=== PATIENT | male | born 1965 | race Caucasian/White ===

== ENCOUNTER 2017-02-06 22:49 | Emergency (ER) | payer MEDICARE, MEDICAID ==
[~2017-02-06] VITALS: Ht 187.9 cm; Wt 101.6 kg
[~2017-02-06 22:49] MED LIST: ABILIFY2 MG PO; BACTRIM DS 8001 TA1 PO; CATAFLAM50 MG PO; CATAPRES0.1 MG PO; CLARITIN10 MG PO; CLEOCIN HCL150 MG PO; CLINDAMYCIN HC300 MG PO; CLINDAMYCIN150 MG PO; DAYPRO600 M1 PO; DEPAKOTE ER500 MG PO; DEPAKOTE250 MG PO; HYDROCODONE BIT1 T11 PO; KEFLEX500 MG PO; KEPPRA1000 MG PO; LEVAQUIN750 MG PO; MEDROL DOSEPAK4 MG PO; MOTRIN800 MG PO; NASONEX0.05 MG/AC NS; NEOSPORIN TP; NEURONTIN300 MG PO; OMNICEF300 MG PO; OPANA ER10 MG PO; OPANA10 MG PO; PERCOCET 325 MG1 TA2 PO; VALIUM10 MG PO; VICODIN 5/500 505 MG PO; VICODIN 500 MG-1 TAB PO; VICODIN ES 7501 TAB PO; VITAMIN D5000 I2 PO; ZITHROMAX Z PA250 MG PO; ZITHROMAX250 MG PO; [UNRECOGNIZED DRUG - OTHER]; [UNRECOGNIZED DRUG - OTHER] TP
[2017-02-06 23:50] LABS: BILIRUBIN NEGATIVE (NEGATIVE); BLOOD NEGATIVE (NEGATIVE); CLARITY CLEAR (CLEAR); COLOR YELLOW (YELLOW); GLUCOSE NEGATIVE (NEGATIVE); KETONE 1+ (NEGATIVE); LEUKO ESTERASE NEGATIVE (NEGATIVE); NITRITE NEGATIVE (NEGATIVE); PH 5.5 (5.0-9.0); PROTEIN TRACE (NEGATIVE); SPECIFIC GRAVITY 1.025 (1.005-1.030); UROBILINOGEN 0.2 E.U./dl (0.2-1.0)
[2017-02-06 23:56] LABS: BACTERIA TRACE; EPITHELIAL CELLS 0-2; RBC 0-2 rbc/hpf (0-2); URINE REFLEX COMMENT NO (NO)
[2017-02-07 00:01] LABS: BASO # 0.1 10*3/uL (0.0-0.1); BASO % 0.4 % (0.0-1.0); EOS # 0.1 10*3/uL (0.0-0.4); EOS % 0.5 % (1.0-4.0); HEMATOCRIT 52.5 % (42.0-52.0); HEMOGLOBIN 17.9 g/dl (14.0-18.0); IG # 0.1 10*3/uL (0.0-0.1); LYMPH # 3.2 10*3/uL (1.3-4.4); MEAN CELL VOLUME 93.9 fl (80.0-94.0); MEAN CORPUSCULAR HGB CONC 34.1 g/dl (33.0-37.0); MEAN PLATELET VOLUME 10.6 fl (9.6-12.3); MONO # 0.9 10*3/uL (0.1-1.0); MONO % 7.5 % (3.0-9.0); NEUT # 8.1 10*3/uL (2.3-7.9); NEUT % 65.2 % (47.0-73.0); PLATELET COUNT AUTOMATED 231 10*3/uL (130-400); RED BLOOD COUNT 5.59 10*6/uL (4.50-5.90); RED CELL DISTRI WIDTH 11.9 % (0-14.5); WHITE BLOOD COUNT 12.4 10*3/uL (4.8-10.8)
[2017-02-07 00:03] LABS: URINE AMPHETAMINES < 1000 (1000ng/ml); URINE BARBITURATES < 200 (200ng/ml); URINE COCAINE < 300 (300ng/ml)
[2017-02-07 00:13] LABS: BUN 15 mg/dl (7-24); CARBON DIOXIDE 28 mmol/L (21-32); CHLORIDE 99 mmol/L (98-107); EST GLOM FILT AFRICAN AMERICAN > 60 ml/min; GLUCOSE 119 mg/dL (65-99); SODIUM 137 mmol/L (136-145)
== END 2017-02-07 01:36 | disposition home or self-care (01) ==
LOC: ED 22:49
PROVIDERS: Emergency Medicine Emergency Medical Services
DX: G40.209 Localization-related (focal) (partial) symptomatic epilepsy and epileptic syndromes with complex partial seizures, not intractable, without status epilepticus (principal); Z88.0 Allergy status to penicillin; Z88.6 Allergy status to analgesic agent; Z88.8 Allergy status to other drugs, medicaments and biological substances; Z91.041 Radiographic dye allergy status; Z79.899 Other long term (current) drug therapy

== ENCOUNTER 2018-12-23 06:37 | Emergency (ER) | payer MEDICARE, MEDICAID ==
[~2018-12-23] VITALS: Ht 187.9 cm; Wt 91.6 kg
[~2018-12-23 06:37] MED LIST changes: +ABILIFY20 MG PO; +BREO ELLIPTA 21 EACH INH; +DIAZEPAM10 M1 PO; +GLUCOPHAGE500 M1 PO; +ZITHROMAX1 GM PO
== END 2018-12-23 09:18 | disposition left against medical advice (07) ==
LOC: ED 06:37
DX: R60.0 Localized edema (principal); Z98.890 Other specified postprocedural states; Z79.899 Other long term (current) drug therapy; Z88.0 Allergy status to penicillin; Z88.6 Allergy status to analgesic agent; Z91.041 Radiographic dye allergy status; Z88.5 Allergy status to narcotic agent

== ENCOUNTER → 2019-04-25 | Outpatient (CLI) | payer MEDICARE, MEDICAID | END | disposition home or self-care (01) | LOC: RAD 12:26 | DX: M51.36 Other intervertebral disc degeneration, lumbar region (principal); M54.16 Radiculopathy, lumbar region ==

== ENCOUNTER 2019-05-11 14:17 | Emergency (ER) | payer MEDICARE, MEDICAID ==
[~2019-05-11] VITALS: Wt 93.0 kg
[2019-05-11] MEDS ORDERED: OXYCODONE HCL10 M1 PO (15:12)
== END 2019-05-11 15:54 | disposition home or self-care (01) ==
LOC: ED 14:17
DX: G89.29 Other chronic pain (principal); M54.5 Low back pain; R20.0 Anesthesia of skin; R20.2 Paresthesia of skin; E11.9 Type 2 diabetes mellitus without complications; F11.23 Opioid dependence with withdrawal; Z79.899 Other long term (current) drug therapy; Z88.0 Allergy status to penicillin; Z88.6 Allergy status to analgesic agent; Z91.041 Radiographic dye allergy status; Z88.8 Allergy status to other drugs, medicaments and biological substances

== ENCOUNTER → 2020-01-30 | Outpatient (CLI) | payer MEDICARE, MEDICAID ==
[~2020-01-30] MED LIST changes: +OXYCODONE HCL10 M1 PO
[2020-01-30 16:52] LABS: BASO # 0.1 10*3/uL (0.0-0.1); BASO % 0.4 % (0.0-1.0); EOS # 0.1 10*3/uL (0.0-0.4); EOS % 0.5 % (1.0-4.0); HEMATOCRIT 46.7 % (42.0-52.0); LYMPH # 3.4 10*3/uL (1.3-4.4); LYMPH % 27.4 % (27.0-41.0); MEAN CELL VOLUME 98.9 fl (80.0-94.0); MEAN CORPUSCULAR HGB CONC 32.3 g/dl (33.0-37.0); MEAN PLATELET VOLUME 10.4 fl (9.6-12.3); MONO # 0.9 10*3/uL (0.1-1.0); MONO % 7.6 % (3.0-9.0); NEUT # 7.8 10*3/uL (2.3-7.9); NEUT % 63.4 % (47.0-73.0); PLATELET COUNT AUTOMATED 233 10*3/uL (130-400); RED BLOOD COUNT 4.72 10*6/uL (4.50-5.90); WHITE BLOOD COUNT 12.2 10*3/uL (4.8-10.8)
[2020-01-30 17:29] LABS: ALBUMIN 3.6 gm/dl (3.1-4.5); ALKALINE PHOSPHATASE 44 U/L (45-117); BUN 14 mg/dl (7-24); CHLORIDE 105 mmol/L (98-107); CHOLESTEROL 191 mg/dL (<200); CREATININE 0.72 mg/dL (0.70-1.30); FREE T4 0.93 ng/dl (0.76-1.46); HDL CHOLESTEROL 31 mg/dl (40-60); LDL CHOLESTEROL 119 mg/dL (9-159); POTASSIUM 4.4 mmol/L (3.5-5.1); SGOT/AST 19 IU/L (3-35); SGPT/ALT 47 U/L (12-78); SODIUM 139 mmol/L (136-145); TOTAL PROTEIN 7.2 gm/dL (6.4-8.2); TRIGLYCERIDES 206 mg/dl (<150); URIC ACID 4.6 mg/dL (3.5-7.2); VLDL CHOLESTEROL 41 mg/dL (6-40)
[2020-01-30 17:43] LABS: VITAMIN D, 25-HYDROXY 42.2 ng/mL (30-100)
== END | disposition home or self-care (01) ==
LOC: LAB 16:34
PROVIDERS: Internal Medicine
DX: Z00.00 Encounter for general adult medical examination without abnormal findings (principal); R60.0 Localized edema; E55.9 Vitamin D deficiency, unspecified; I10 Essential (primary) hypertension; E11.9 Type 2 diabetes mellitus without complications; M10.072 Idiopathic gout, left ankle and foot

== ENCOUNTER → 2020-10-14 | Outpatient (CLI) | payer OTHER, MEDICAID | END | disposition home or self-care (01) | LOC: RAD 10:42 | PROVIDERS: ATTEND Nurse Practitioner Acute Care | DX: M54.16 Radiculopathy, lumbar region (principal); M54.5 Low back pain ==

== ENCOUNTER 2021-03-01 06:08 | Emergency (ER) | payer OTHER, MEDICAID ==
[~2021-03-01] VITALS: Ht 180.3 cm; Wt 90.7 kg
[2021-03-01 07:28] LABS: HEMATOCRIT 47.2 % (42.0-52.0); MEAN CELL VOLUME 93.7 fl (80.0-94.0); MEAN CORPUSCULAR HGB 30.6 pg (27.0-31.0); MEAN CORPUSCULAR HGB CONC 32.6 g/dl (33.0-37.0); MEAN PLATELET VOLUME 10.3 fl (9.6-12.3); PLATELET COUNT AUTOMATED 260 10*3/uL (130-400); RED BLOOD COUNT 5.04 10*6/uL (4.50-5.90); RED CELL DISTRI WIDTH 12.6 % (0-14.5); WHITE BLOOD COUNT 11.3 10*3/uL (4.8-10.8)
[2021-03-01 07:41] LABS: ALBUMIN 3.5 gm/dl (3.1-4.5); ALKALINE PHOSPHATASE 76 U/L (45-117); BUN 10 mg/dl (7-24); CHLORIDE 104 mmol/L (98-107); CREATININE 0.69 mg/dL (0.70-1.30); POTASSIUM 4.1 mmol/L (3.5-5.1); SGOT/AST 9 IU/L (3-35); SGPT/ALT 27 U/L (12-78); SODIUM 136 mmol/L (136-145); TOTAL PROTEIN 7.6 gm/dL (6.4-8.2)
[2021-03-01 07:55] LABS: TOTAL CELLS COUNTED 100 #CELLS
[2021-03-01 07:56] LABS: PLATELET SUFFICIENCY NORMAL (NORMAL)
== END 2021-03-01 08:05 | disposition left against medical advice (07) ==
LOC: ED 06:08
PROVIDERS: Emergency Medicine
DX: S81.801A Unspecified open wound, right lower leg, initial encounter (principal); F17.200 Nicotine dependence, unspecified, uncomplicated; Z88.0 Allergy status to penicillin; Z88.8 Allergy status to other drugs, medicaments and biological substances; Z91.041 Radiographic dye allergy status; Z88.6 Allergy status to analgesic agent; Z79.899 Other long term (current) drug therapy; Z79.2 Long term (current) use of antibiotics; Z98.890 Other specified postprocedural states; V29.9XXA Motorcycle rider (driver) (passenger) injured in unspecified traffic accident, initial encounter; Y93.89 Activity, other specified; Y92.488 Other paved roadways as the place of occurrence of the external cause; Y99.8 Other external cause status

== ENCOUNTER 2021-07-12 16:06 | Emergency (ER) | payer OTHER, MEDICAID ==
[~2021-07-12] VITALS: Ht 187.9 cm; Wt 90.7 kg
[2021-07-12] MEDS ORDERED: NAPROSYN500 MG PO (18:00)
== END 2021-07-12 18:02 | disposition home or self-care (01) ==
LOC: ED 16:06
DX: S20.212A Contusion of left front wall of thorax, initial encounter (principal); Z88.0 Allergy status to penicillin; Z88.6 Allergy status to analgesic agent; Z91.041 Radiographic dye allergy status; Z88.8 Allergy status to other drugs, medicaments and biological substances; Z79.899 Other long term (current) drug therapy; W17.89XA Other fall from one level to another, initial encounter; Y93.89 Activity, other specified; Y92.89 Other specified places as the place of occurrence of the external cause; Y99.8 Other external cause status

== ENCOUNTER → 2022-01-15 | Outpatient (CLI) | payer OTHER, MEDICAID ==
[~2022-01-15] MED LIST changes: +BUMETANIDE0.5 MG PO; +GOOD SENSE ASP325 MG PO; +LIPITOR20 MG PO; +LOSARTAN-HCTZ1 EACH PO; +NAPROSYN500 MG PO; +SUBOXONE 8 MG-1 EACH SL
== END | disposition home or self-care (01) ==
LOC: CARD 00:57
PROVIDERS: ATTEND Internal Medicine
DX: I50.21 Acute systolic (congestive) heart failure (principal); R22.43 Localized swelling, mass and lump, lower limb, bilateral

== ENCOUNTER 2022-01-19 10:48 | Emergency (ER) | payer OTHER, MEDICAID ==
[~2022-01-19] VITALS: Wt 93.4 kg
[~2022-01-19 10:48] MED LIST changes: -BUMETANIDE0.5 MG PO; -GOOD SENSE ASP325 MG PO; -LIPITOR20 MG PO; -LOSARTAN-HCTZ1 EACH PO
[2022-01-19 10:55] VITALS: BP 157/77
[2022-01-19 12:04] LABS: BASO # 0.1 10*3/uL (0.0-0.1); BASO % 0.5 % (0.0-1.0); EOS # 0.1 10*3/uL (0.0-0.4); EOS % 0.6 % (1.0-4.0); HEMATOCRIT 52.3 % (42.0-52.0); LYMPH # 2.8 10*3/uL (1.3-4.4); LYMPH % 26.4 % (27.0-41.0); MEAN CELL VOLUME 99.8 fl (80.0-94.0); MEAN CORPUSCULAR HGB 31.3 pg (27.0-31.0); MEAN CORPUSCULAR HGB CONC 31.4 g/dl (33.0-37.0); MEAN PLATELET VOLUME 10.2 fl (9.6-12.3); MONO # 0.9 10*3/uL (0.1-1.0); MONO % 8.5 % (3.0-9.0); NEUT # 6.6 10*3/uL (2.3-7.9); NEUT % 63.6 % (47.0-73.0); PLATELET COUNT AUTOMATED 202 10*3/uL (130-400); RED BLOOD COUNT 5.24 10*6/uL (4.50-5.90); WHITE BLOOD COUNT 10.4 10*3/uL (4.8-10.8)
[2022-01-19 12:14] LABS: ACT PARTIAL THROMBO TIME 28.7 SECONDS (20.0-32.1)
[2022-01-19] MEDS ORDERED: LOSARTAN-HCTZ1 EACH PO (12:24)
[2022-01-19] MEDS ORDERED: BUMETANIDE0.5 MG PO (12:24)
[2022-01-19 12:33] LABS: ALKALINE PHOSPHATASE 85 U/L (45-117); BUN 16 mg/dl (7-24); CHLORIDE 108 mmol/L (98-107); CREATININE 0.75 mg/dL (0.70-1.30); SGOT/AST 23 IU/L (3-35); SGPT/ALT 34 U/L (12-78); SODIUM 139 mmol/L (136-145); TOTAL PROTEIN 7.4 gm/dL (6.4-8.2)
[2022-01-19] MEDS ORDERED: LIPITOR20 MG PO (14:39)
[2022-01-19] MEDS ORDERED: GOOD SENSE ASP325 MG PO (14:40)
== END 2022-01-19 15:16 | disposition home or self-care (01) ==
LOC: ED 10:48 → EDHOLD 12:15 → ED 12:15
PROVIDERS: Emergency Medicine
DX: S14.3XXA Injury of brachial plexus, initial encounter (principal); R53.1 Weakness; Z88.0 Allergy status to penicillin; Z91.041 Radiographic dye allergy status; Z88.8 Allergy status to other drugs, medicaments and biological substances; Z88.6 Allergy status to analgesic agent; Z79.899 Other long term (current) drug therapy; Z90.89 Acquired absence of other organs; X58.XXXA Exposure to other specified factors, initial encounter; Y93.89 Activity, other specified; Y92.89 Other specified places as the place of occurrence of the external cause; Y99.8 Other external cause status

== ENCOUNTER → 2022-11-04 | Outpatient (CLI) | payer OTHER, MEDICAID ==
[~2022-11-04] MED LIST changes: +BUMETANIDE0.5 MG PO; +GOOD SENSE ASP325 MG PO; +LIPITOR20 MG PO; +LOSARTAN-HCTZ1 EACH PO
[2022-11-04 15:20] LABS: BASO # 0.1 10*3/uL (0.0-0.1); BASO % 0.5 % (0.0-1.0); EOS # 0.1 10*3/uL (0.0-0.4); EOS % 0.6 % (1.0-4.0); HEMATOCRIT 52.7 % (42.0-52.0); LYMPH # 4.1 10*3/uL (1.3-4.4); LYMPH % 27.3 % (27.0-41.0); MEAN CELL VOLUME 93.8 fl (80.0-94.0); MEAN CORPUSCULAR HGB 31.5 pg (27.0-31.0); MEAN CORPUSCULAR HGB CONC 33.6 g/dl (33.0-37.0); MONO # 0.9 10*3/uL (0.1-1.0); MONO % 6.3 % (3.0-9.0); NEUT # 9.7 10*3/uL (2.3-7.9); NEUT % 64.9 % (47.0-73.0); PLATELET COUNT AUTOMATED 307 10*3/uL (130-400); RED BLOOD COUNT 5.62 10*6/uL (4.50-5.90); RED CELL DISTRI WIDTH 12.5 % (0-14.5); WHITE BLOOD COUNT 14.9 10*3/uL (4.8-10.8)
[2022-11-04 15:36] LABS: ALKALINE PHOSPHATASE 61 U/L (46-116); BUN 9 mg/dl (9-23); CHLORIDE 102 mmol/L (98-107); POTASSIUM 4.1 mmol/L (3.4-5.1); SGPT/ALT 45 U/L (10-49); TOTAL PROTEIN 7.9 gm/dL (6.0-8.0)
[2022-11-04 15:50] LABS: VITAMIN D, 25-HYDROXY 41.6 ng/mL (30-100)
[2022-11-04 16:01] LABS: FREE T4 1.15 ng/dl (0.89-1.76); THYROID STIM HORMONE (HS) 2.431 uIU/ml (0.550-4.780)
[2022-11-04 16:02] LABS: VALPROIC ACID (DEPAKENE) 67.5 ug/ml (50-100)
[2022-11-05 09:07] LABS: HBSAG Negative (Negative); HEP B CORE AB, IGM Negative (Negative); HEPATITIS C ANTIBODY Non Reactive (Non Reactive)
== END | disposition home or self-care (01) ==
LOC: LAB 14:50
PROVIDERS: ATTEND Nurse Practitioner Family
DX: E11.65 Type 2 diabetes mellitus with hyperglycemia (principal); E11.40 Type 2 diabetes mellitus with diabetic neuropathy, unspecified; E55.9 Vitamin D deficiency, unspecified; E03.9 Hypothyroidism, unspecified; Z13.6 Encounter for screening for cardiovascular disorders; Z13.0 Encounter for screening for diseases of the blood and blood-forming organs and certain disorders involving the immune mechanism; Z13.820 Encounter for screening for osteoporosis; Z13.1 Encounter for screening for diabetes mellitus; Z13.21 Encounter for screening for nutritional disorder; Z13.228 Encounter for screening for other metabolic disorders; F11.20 Opioid dependence, uncomplicated; R53.83 Other fatigue

== ENCOUNTER 2022-11-19 13:53 | Emergency (ER) | payer OTHER, MEDICAID ==
[~2022-11-19] VITALS: Wt 93.0 kg
[2022-11-19 14:32] LABS: HEMATOCRIT 52.4 % (42.0-52.0); MEAN CELL VOLUME 93.6 fl (80.0-94.0); MEAN CORPUSCULAR HGB 31.3 pg (27.0-31.0); MEAN CORPUSCULAR HGB CONC 33.4 g/dl (33.0-37.0); MEAN PLATELET VOLUME 9.9 fl (9.6-12.3); PLATELET COUNT AUTOMATED 310 10*3/uL (130-400); RED CELL DISTRI WIDTH 12.3 % (0-14.5); WHITE BLOOD COUNT 19.6 10*3/uL (4.8-10.8)
[2022-11-19 14:37] LABS: MANUAL DIFF REFLEX YES
[2022-11-19 14:39] LABS: BILIRUBIN Negative (Negative); BLOOD Negative (Negative); CLARITY Clear (Clear); COLOR Yellow (Yellow); GLUCOSE Negative (Negative); KETONE Trace (Negative); LEUKO ESTERASE Negative (Negative); NITRITE Negative (Negative); PH 5.5 (4.5-8.0); SPECIFIC GRAVITY 1.015 (1.001-1.030); UROBILINOGEN 0.2 E.U./dl (0.0-1.0)
[2022-11-19 14:47] LABS: ACT PARTIAL THROMBO TIME 29.9 SECONDS (20.0-32.1)
[2022-11-19 14:51] LABS: ALKALINE PHOSPHATASE 58 U/L (46-116); BUN 11 mg/dl (9-23); CHLORIDE 95 mmol/L (98-107); LIPASE 44 U/L (12-53); POTASSIUM 3.6 mmol/L (3.4-5.1); SGPT/ALT 35 U/L (10-49); TOTAL PROTEIN 8.3 gm/dL (6.0-8.0)
[2022-11-19 14:54] LABS: ATYPICAL LYMPHS 4 % (0-0); PLATELET SUFFICIENCY NORMAL (NORMAL); TOTAL CELLS COUNTED 100 #CELLS
[2022-11-19 15:10] LABS: EPITHELIAL CELLS 0-2; RBC 0-2 rbc/hpf (0-2); WBC 0-2 wbc/hpf (0-5)
[2022-11-19] MEDS ORDERED: ZITHROMAX250 MG PO (16:08)
[2022-11-19] MEDS ORDERED: PREDNISONE50 MG PO (16:08)
== END 2022-11-19 16:46 | disposition home or self-care (01) ==
LOC: ED 13:53
PROVIDERS: Emergency Medicine
DX: J20.9 Acute bronchitis, unspecified (principal); Z88.0 Allergy status to penicillin; Z91.041 Radiographic dye allergy status; Z88.8 Allergy status to other drugs, medicaments and biological substances; Z79.899 Other long term (current) drug therapy; Z79.82 Long term (current) use of aspirin; Z90.89 Acquired absence of other organs

== ENCOUNTER 2023-12-16 14:40 | Emergency (ER) | payer OTHER, MEDICAID ==
[~2023-12-16] VITALS: Ht 187.9 cm; Wt 93.0 kg
[~2023-12-16 14:40] MED LIST changes: +PREDNISONE50 MG PO
[2023-12-16] MEDS ORDERED: Acetaminophen/Oxycodone 5 MG/325 MG TABLET PO ONE (16:35)
[2023-12-16] MEDS ORDERED: PERCOCET 5-3251 EACH PO (16:57)
== END 2023-12-16 17:12 | disposition home or self-care (01) ==
LOC: ED 14:40
DX: S22.41XA Multiple fractures of ribs, right side, initial encounter for closed fracture (principal); M79.605 Pain in left leg; F41.9 Anxiety disorder, unspecified; F32.A Depression, unspecified; I11.0 Hypertensive heart disease with heart failure; I50.9 Heart failure, unspecified; J44.9 Chronic obstructive pulmonary disease, unspecified; E11.9 Type 2 diabetes mellitus without complications; Z88.0 Allergy status to penicillin; Z91.041 Radiographic dye allergy status; Z88.8 Allergy status to other drugs, medicaments and biological substances; Z98.890 Other specified postprocedural states; Z87.891 Personal history of nicotine dependence; W22.8XXA Striking against or struck by other objects, initial encounter; Y93.89 Activity, other specified; Y92.89 Other specified places as the place of occurrence of the external cause; Y99.8 Other external cause status

== ENCOUNTER 2024-01-04 13:52 | Inpatient (IN) | payer OTHER, MEDICAID ==
[~2024-01-04] VITALS: Ht 187.9 cm; Wt 93.0 kg
[~2024-01-04 13:52] MED LIST changes: +PERCOCET 5-3251 EACH PO
[2024-01-04 13:58] VITALS: BP 147/81
[2024-01-04 15:37] LABS: BASO # 0.1 10*3/uL (0.0-0.1); BASO % 0.4 % (0.0-1.0); EOS # 0.1 10*3/uL (0.0-0.4); EOS % 0.7 % (1.0-4.0); HEMATOCRIT 48.1 % (42.0-52.0); LYMPH # 3.4 10*3/uL (1.3-4.4); LYMPH % 20.3 % (27.0-41.0); MEAN CELL VOLUME 98.2 fl (80.0-94.0); MEAN CORPUSCULAR HGB CONC 31.6 g/dl (33.0-37.0); MEAN PLATELET VOLUME 9.2 fl (9.6-12.3); MONO # 1.1 10*3/uL (0.1-1.0); MONO % 6.4 % (3.0-9.0); NEUT # 11.9 10*3/uL (2.3-7.9); NEUT % 71.8 % (47.0-73.0); PLATELET COUNT AUTOMATED 372 10*3/uL (130-400); RED CELL DISTRI WIDTH 12.1 % (0-14.5); WHITE BLOOD COUNT 16.5 10*3/uL (4.8-10.8)
[2024-01-04 16:04] LABS: ALKALINE PHOSPHATASE 113 U/L (46-116); BUN 8 mg/dl (9-23); CHLORIDE 100 mmol/L (98-107); POTASSIUM 3.9 mmol/L (3.4-5.1); SGPT/ALT 9 U/L (5-49)
[2024-01-04] MEDS ORDERED: SODIUM CHLORIDE 0.9% 1,000 ML IV ONE (16:20)
[2024-01-04] MEDS ORDERED: Vancomycin Hydrochloride 250 ML IV ONE (16:25)
[2024-01-04 18:43] VITALS: BP 140/68
[2024-01-05] MEDS ORDERED: VANCOMYCIN/WATER FOR INJ (PEG) 300 ML IV SCH
[2024-01-05] MEDS ORDERED: Ceftriaxone Sodium 1 GM/10 ML SYR IV SCH (10:00)
[2024-01-05] MEDS ORDERED: FUROSEMIDE 40 MG/4 ML VIAL IV SCH (10:00)
== END 2024-01-05 07:30 | disposition left against medical advice (07) | DRG 872 ==
LOC: ED 13:52 → EDHOLD 16:29
PROVIDERS: Nurse Practitioner Family; ADMIT Internal Medicine; ATTEND Internal Medicine
DX: A41.9 Sepsis, unspecified organism (principal); L03.116 Cellulitis of left lower limb; S81.802A Unspecified open wound, left lower leg, initial encounter; X58.XXXA Exposure to other specified factors, initial encounter; Z91.041 Radiographic dye allergy status; Z88.8 Allergy status to other drugs, medicaments and biological substances; Z88.5 Allergy status to narcotic agent; Z53.29 Procedure and treatment not carried out because of patient's decision for other reasons; Z79.1 Long term (current) use of non-steroidal anti-inflammatories (NSAID); Z88.0 Allergy status to penicillin; Z79.899 Other long term (current) drug therapy; Z79.82 Long term (current) use of aspirin; Y93.89 Activity, other specified; Y92.89 Other specified places as the place of occurrence of the external cause; Y99.8 Other external cause status

== ENCOUNTER → 2024-06-08 | Outpatient (CLI) | payer OTHER, MEDICAID ==
[2024-06-08 14:28] LABS: BASO % 0.4 % (0.0-1.0); EOS # 0.1 10*3/uL (0.0-0.4); EOS % 0.9 % (1.0-4.0); HEMATOCRIT 50.2 % (42.0-52.0); LYMPH # 3.1 10*3/uL (1.3-4.4); LYMPH % 28.8 % (27.0-41.0); MEAN CELL VOLUME 96.2 fl (80.0-94.0); MEAN CORPUSCULAR HGB CONC 32.3 g/dl (33.0-37.0); MEAN PLATELET VOLUME 9.7 fl (9.6-12.3); NEUT # 6.5 10*3/uL (2.3-7.9); NEUT % 60.4 % (47.0-73.0); PLATELET COUNT AUTOMATED 315 10*3/uL (130-400); RED BLOOD COUNT 5.22 10*6/uL (4.50-5.90); RED CELL DISTRI WIDTH 12.7 % (0-14.5); WHITE BLOOD COUNT 10.8 10*3/uL (4.8-10.8)
[2024-06-08 15:04] LABS: ALKALINE PHOSPHATASE 61 U/L (46-116); BUN 16 mg/dl (9-23); CHLORIDE 99 mmol/L (98-107); POTASSIUM 4.1 mmol/L (3.4-5.1); SGPT/ALT 38 U/L (5-49); TOTAL PROTEIN 7.7 gm/dL (6.0-8.0)
[2024-06-09 05:07] LABS: HBSAG Negative (Negative); HEP B CORE AB, IGM Negative (Negative); HEPATITIS C ANTIBODY Non Reactive (Non Reactive)
== END | disposition home or self-care (01) ==
LOC: LAB 14:05
PROVIDERS: ATTEND Nurse Practitioner Family
DX: F11.20 Opioid dependence, uncomplicated (principal); R53.83 Other fatigue

== ENCOUNTER → 2024-10-19 | Outpatient (CLI) | payer OTHER, MEDICAID ==
[2024-10-19 12:10] LABS: BASO # 0.1 10*3/uL (0.0-0.1); BASO % 0.4 % (0.0-1.0); EOS # 0.1 10*3/uL (0.0-0.4); EOS % 0.6 % (1.0-4.0); HEMATOCRIT 49.4 % (42.0-52.0); MEAN CELL VOLUME 95.2 fl (80.0-94.0); MEAN CORPUSCULAR HGB 30.6 pg (27.0-31.0); MEAN CORPUSCULAR HGB CONC 32.2 g/dl (33.0-37.0); MEAN PLATELET VOLUME 9.8 fl (9.6-12.3); MONO # 1.2 10*3/uL (0.1-1.0); MONO % 8.5 % (3.0-9.0); NEUT # 9.2 10*3/uL (2.3-7.9); PLATELET COUNT AUTOMATED 273 10*3/uL (130-400); RED BLOOD COUNT 5.19 10*6/uL (4.50-5.90); RED CELL DISTRI WIDTH 12.8 % (0-14.5)
[2024-10-19 12:54] LABS: ALKALINE PHOSPHATASE 52 U/L (46-116); BUN 14 mg/dl (9-23); CHLORIDE 105 mmol/L (98-107); CHOLESTEROL 197 mg/dL (<200); LDL CHOLESTEROL 132 mg/dL (9-159); POTASSIUM 4.7 mmol/L (3.4-5.1); SGPT/ALT 12 U/L (5-49); TOTAL PROTEIN 6.9 gm/dL (6.0-8.0); TRIGLYCERIDES 157 mg/dl (<150)
== END | disposition home or self-care (01) ==
LOC: LAB 11:53
PROVIDERS: ATTEND Physician Assistant
DX: Z51.81 Encounter for therapeutic drug level monitoring (principal); F25.0 Schizoaffective disorder, bipolar type

== ENCOUNTER 2025-01-14 12:22 | Emergency (ER) | payer OTHER, MEDICAID ==
[~2025-01-14] VITALS: Ht 187.9 cm; Wt 81.6 kg
[2025-01-14] MEDS ORDERED: SODIUM CHLORIDE 0.9% 500 ML IV ONE (13:00)
[2025-01-14] MEDS ORDERED: diazePAM 5 MG TAB PO ONE (13:00)
[2025-01-14] MEDS ORDERED: Albuterol Sulf/Ipratropium 3 ML VIAL NEB ONE (13:05)
[2025-01-14 13:17] LABS: BASO # 0.1 10*3/uL (0.0-0.1); BASO % 0.3 % (0.0-1.0); EOS # 0.1 10*3/uL (0.0-0.4); EOS % 0.3 % (1.0-4.0); HEMATOCRIT 46.5 % (42.0-52.0); MEAN CELL VOLUME 95.1 fl (80.0-94.0); MEAN CORPUSCULAR HGB 31.5 pg (27.0-31.0); MEAN CORPUSCULAR HGB CONC 33.1 g/dl (33.0-37.0); MEAN PLATELET VOLUME 9.2 fl (9.6-12.3); MONO # 1.3 10*3/uL (0.1-1.0); MONO % 6.9 % (3.0-9.0); NEUT # 13.2 10*3/uL (2.3-7.9); NEUT % 72.7 % (47.0-73.0); PLATELET COUNT AUTOMATED 343 10*3/uL (130-400); RED BLOOD COUNT 4.89 10*6/uL (4.50-5.90); RED CELL DISTRI WIDTH 13.3 % (0-14.5); WHITE BLOOD COUNT 18.1 10*3/uL (4.8-10.8)
[2025-01-14 13:26] LABS: BILIRUBIN Negative (Negative); BLOOD Negative (Negative); CLARITY Clear (Clear); COLOR Yellow (Yellow); GLUCOSE Negative (Negative); KETONE 1+ (Negative); LEUKO ESTERASE Negative (Negative); NITRITE Negative (Negative); UROBILINOGEN 0.2 E.U./dl (0.0-1.0)
[2025-01-14 13:31] LABS: URINE AMPHETAMINES Negative (1000ng/ml); URINE BARBITURATES Negative (200ng/ml); URINE BENZODIAZEPINES Positive (200ng/ml); URINE CANNABINOIDS (THC) Negative (50ng/ml); URINE COCAINE Negative (300ng/ml); URINE METHADONE Negative (300ng/ml); URINE OPIATES Negative (300ng/ml); URINE PHENCYCLIDINE Negative (25ng/ml)
[2025-01-14 13:42] LABS: BACTERIA 1+; MUCOUS 2+; RBC 0-2 rbc/hpf (0-2); WBC 0-2 wbc/hpf (0-5)
[2025-01-14 13:45] LABS: ALKALINE PHOSPHATASE 50 U/L (46-116); BUN 13 mg/dl (9-23); CHLORIDE 98 mmol/L (98-107); POTASSIUM 4.2 mmol/L (3.4-5.1); TOTAL PROTEIN 8.1 gm/dL (6.0-8.0); VALPROIC ACID (DEPAKENE) 84.1 ug/ml (50-100)
[2025-01-14 13:47] LABS: SGPT/ALT < 7 U/L (5-49)
[2025-01-14] MEDS ORDERED: AZITHROMYCIN 250 ML IV ONE (14:05)
[2025-01-14] MEDS ORDERED: ZITHROMAX250 MG PO (16:14)
== END 2025-01-14 15:41 | disposition home or self-care (01) ==
LOC: ED 12:22
PROVIDERS: Emergency Medicine
DX: J42 Unspecified chronic bronchitis (principal); G40.909 Epilepsy, unspecified, not intractable, without status epilepticus; I10 Essential (primary) hypertension; Z88.0 Allergy status to penicillin; Z88.6 Allergy status to analgesic agent; Z88.8 Allergy status to other drugs, medicaments and biological substances; Z91.041 Radiographic dye allergy status; Z79.899 Other long term (current) drug therapy; Z79.84 Long term (current) use of oral hypoglycemic drugs; Z98.890 Other specified postprocedural states

== ENCOUNTER 2025-01-18 14:39 | Emergency (ER) | payer OTHER, MEDICAID ==
[2025-01-18 15:32] LABS: HEMATOCRIT 43.7 % (42.0-52.0); MEAN CELL VOLUME 95.6 fl (80.0-94.0); MEAN CORPUSCULAR HGB 31.3 pg (27.0-31.0); MEAN CORPUSCULAR HGB CONC 32.7 g/dl (33.0-37.0); MEAN PLATELET VOLUME 9.6 fl (9.6-12.3); PLATELET COUNT AUTOMATED 295 10*3/uL (130-400); RED BLOOD COUNT 4.57 10*6/uL (4.50-5.90); RED CELL DISTRI WIDTH 13.2 % (0-14.5); WHITE BLOOD COUNT 12.5 10*3/uL (4.8-10.8)
[2025-01-18 15:38] LABS: MANUAL DIFF REFLEX YES
[2025-01-18 15:49] LABS: URINE AMPHETAMINES Negative (1000ng/ml); URINE BARBITURATES Negative (200ng/ml); URINE BENZODIAZEPINES Positive (200ng/ml); URINE CANNABINOIDS (THC) Negative (50ng/ml); URINE COCAINE Negative (300ng/ml); URINE METHADONE Negative (300ng/ml); URINE OPIATES Negative (300ng/ml); URINE PHENCYCLIDINE Negative (25ng/ml)
[2025-01-18 15:54] LABS: ALKALINE PHOSPHATASE 47 U/L (46-116); BUN 11 mg/dl (9-23); CHLORIDE 102 mmol/L (98-107); ETHYL ALCOHOL < 3.0 mg/dl (<3); POTASSIUM 4.1 mmol/L (3.4-5.1); SGPT/ALT < 7 U/L (5-49)
[2025-01-18 15:59] LABS: BASOPHILS 1 % (0-1); PLATELET SUFFICIENCY NORMAL (NORMAL); TOTAL CELLS COUNTED 100 #CELLS
[2025-01-18 16:56] LABS: BILIRUBIN Negative (Negative); BLOOD Negative (Negative); CLARITY Clear (Clear); COLOR Yellow (Yellow); GLUCOSE Negative (Negative); KETONE 1+ (Negative); LEUKO ESTERASE Negative (Negative); NITRITE Negative (Negative)
[2025-01-18 17:14] LABS: MUCOUS 2+
== END 2025-01-18 17:53 | disposition home or self-care (01) ==
LOC: ED 14:39
PROVIDERS: Internal Medicine
DX: F44.5 Conversion disorder with seizures or convulsions (principal); Z88.0 Allergy status to penicillin; Z88.8 Allergy status to other drugs, medicaments and biological substances; Z91.041 Radiographic dye allergy status; Z88.6 Allergy status to analgesic agent; Z79.899 Other long term (current) drug therapy; Z98.890 Other specified postprocedural states

== ENCOUNTER 2025-03-24 10:49 | Emergency (ER) | payer OTHER, MEDICAID ==
[~2025-03-24] VITALS: Ht 187.9 cm; Wt 81.6 kg
[2025-03-24] MEDS ORDERED: Tdap Vaccine 0.5 ML SYR (Adult Vaccine) IM ONE (12:50)
[2025-03-24] MEDS ORDERED: Bacitracin Zinc 14 GM TUBE T ONE (12:50)
[2025-03-24] MEDS ORDERED: Lidocaine Hydrochloride 2% 10 ML AMP SC ONE (12:50)
[2025-03-24] MEDS ORDERED: CLINDAMYCIN HCL 300 MG CAPSULE PO ONE (14:35)
[2025-03-24] MEDS ORDERED: CLINDAMYCIN HC300 MG PO (14:45)
== END 2025-03-24 14:36 | disposition home or self-care (01) ==
LOC: ED 10:49
DX: S31.119A Laceration without foreign body of abdominal wall, unspecified quadrant without penetration into peritoneal cavity, initial encounter (principal); Z79.2 Long term (current) use of antibiotics; Z88.0 Allergy status to penicillin; Z88.5 Allergy status to narcotic agent; Z88.1 Allergy status to other antibiotic agents; Z88.8 Allergy status to other drugs, medicaments and biological substances; Z98.890 Other specified postprocedural states; W18.02XA Striking against glass with subsequent fall, initial encounter; Y93.89 Activity, other specified; Y92.89 Other specified places as the place of occurrence of the external cause; Y99.8 Other external cause status